=== PATIENT | female | born 1990 | race Caucasian/White ===

== ENCOUNTER 2016-06-22 14:41 | Emergency (ER) | payer OTHER ==
[~2016-06-22] VITALS: Ht 147.3 cm; Wt 50.5 kg
[~2016-06-22 14:41] MED LIST: BCPILLS PO; CRANPOW; MULTTAB58 PO; ONDA4TAB7 SL
[2016-06-22 14:52] VITALS: TEMP 36.9; Ht 147.3 cm; Wt 50.5 kg
[2016-06-22] MEDS ORDERED: IBUP-1050 PO (14:59)
[2016-06-22] MEDS ORDERED: XYLOCAINE 1%/SOD BICARB 20 ML VIAL INFIL ONE (15:30)
[2016-06-22 15:54] VITALS: BP 110/75; PULSE 99; O2SAT 97
--- NOTE | 2016-06-22 19:20 | EMERGENCY ROOM VISIT NOTE ---
History First contact with patient: 15:09 Chief Complaint: FINGER PAIN Stated Complaint: R PINKY NAIL FALLING OFF BED History of Present Illness The patient is a 26 year old female who presents to the Emergency Room with complaints of right fifth finger nail that is coming loose. The patient reports crushing the fingertip in a car door approximately 3 months ago. She reports that the nail has been trying to come off over the past few days. She got it caught in her hair this morning while sleeping, and caused significant pain. She is wanting to know if the nail can be removed. She rates her discomfort a 6 out of 10. The patient is [id number]. Review of Systems 10 system review was performed and was negative except for pertinent positives and negatives as indicated in history of present illness Past Medical/Surgical History Medical Problems: (1) Pyelonephritis (2) Tobacco Use Disorder Surgical Problems: (1) No history of previous surgery Family History FH: hypertension FH: kidney disease Social History Smoking Status: Current Every Day Smoker Alcohol Use: none Marital Status: single Housing Status: lives with significant other Occupation Status: unemployed Current/Historical Medications Scheduled Ibuprofen (Advil), 400 MG PO DIRECTED Allergies Coded Allergies: Ciprofloxacin (Verified Allergy, Unknown, rash, 06/22/16) Physical Exam Vital Signs Date Time Temp Pulse Resp B/P Pulse Ox O2 Delivery O2 Flow Rate FiO2 06/22/16 15:54 99 16 110/75 97 06/22/16 14:52 36.9 106 16 112/70 99 Room Air Physical Exam CONSTITUTIONAL: Healthy and well nourished. Alert and oriented X 3 with positive affect. HEENT: Normocephalic, atraumatic. Pupils equal, round and reactive. NECK: Full active range of motion without discomfort. MUSCULOSKELETAL: Examination of the right fifth finger shows a nail plate that is subluxed proximally, and attached to the radial nail fold. There is no bleeding from under the nail plate. Capillary refill is less than 2 seconds. INTEGUMENTARY: No rash or other significant dermatologic conditions noted. NEUROLOGIC: No focal neurologic deficits noted. Right fifth fingertip is sensory intact. Medical Decision & Procedures Medications Administered Medications (Trade) Dose Ordered Sig/Porfirio Route Start Time Stop Time Status Last Admin Dose Admin Lidocaine HCl (Buffered Lidocaine 1% Inj) 20 ml ONE ONCE INFIL 06/22/16 15:30 1/2/17 15:31 DC 06/22/16 15:26 20 ML Procedure Patient requested nail plate removal under digital block anesthesia. Using buffered 1% lidocaine without epinephrine, good local anesthesia was administered. The finger was painted with iodine and allowed to dry. Sterile field was created. Great care was used to avoid any further trauma to the nail fold and underlying nailbed. The nail plate was carefully from the nail fold with iris scissors. The finger was then cleansed with normal saline, and covered with a bacitracin bandage. ED Course Patient history and physical exam were performed. Nail plate removal was performed at the request of the patient. She was encouraged to keep the area covered with an antibody ointment and dressing over the next few days, watching for any signs of infection. Ibuprofen or Tylenol if needed for pain. The patient was happy with plan care, voiced understanding of all discharge instructions, and denied any pain at the time of discharge. Impression Primary Impression: Separation of nail plate Departure Information Referrals No Doctor, Assigned (PCP) Patient Instructions A Signature [facility], [facility]
== END 2016-06-22 15:56 | disposition home or self-care (01) ==
LOC: C.EDB 14:44 → C.EDD 15:56
DX: L60.1 Onycholysis (principal); F17.210 Nicotine dependence, cigarettes, uncomplicated

== ENCOUNTER 2016-11-13 13:03 | Emergency (ER) | payer OTHER ==
[~2016-11-13] VITALS: Ht 147.3 cm; Wt 44.5 kg
[~2016-11-13 13:03] MED LIST changes: -BCPILLS PO; -CRANPOW; +IBUP-1050 PO; -MULTTAB58 PO; -ONDA4TAB7 SL
[2016-11-13 13:07] VITALS: TEMP 36.7; Ht 147.3 cm; Wt 44.5 kg
[2016-11-13] MEDS ORDERED: SODIUM CHLORIDE 0.9% 1000ML 1,000 ML IV STA (13:22)
[2016-11-13] MEDS ORDERED: ONDANSETRON INJ 2 MG/ML 2 ML VIAL IV STA (13:22)
[2016-11-13] MEDS ORDERED: KETOROLAC TROMETHAMINE 30 MG/ML VIAL IV STA (13:22)
[2016-11-13 13:38] LABS: BASO % 0.1 %; BASO ABS # 0.01 K/uL (0-0.2); COMPLETE YES; EOS % 1.2 %; HEMATOCRIT 43.2 % (37-47); IG% 0.1 %; LYMPH % 27.9 %; LYMPH ABS # 2.33 K/uL (1.2-3.4); MEAN CELL VOLUME 90.8 fL (80-100); MEAN CORPUSCULAR HEMOGLOBIN 29.8 pg (25-34); MEAN CORPUSCULAR HGB CONC 32.9 g/dl (32-36); MEAN PLATELET VOLUME 11.2 fL (7.4-10.4); MONO % 6.5 %; NEUT % 64.2 %; PLATELET COUNT 224 K/uL (130-400); RED BLOOD COUNT 4.76 M/uL (4.2-5.4); WHITE BLOOD COUNT 8.36 K/uL (4.8-10.8)
[2016-11-13 14:00] LABS: ALT/SGPT 19 U/L (12-78); AST/SGOT 10 U/L (15-37); BLOOD UREA NITROGEN 9 mg/dl (7-18); BUN/CREATININE RATIO 13.7 (10-20); CALCIUM 8.6 mg/dl (8.5-10.1); CARBON DIOXIDE 24 mmol/L (21-32); CHLORIDE 110 mmol/L (98-107); CREATININE 0.69 mg/dl (0.60-1.20); GLUCOSE 108 mg/dl (70-99); POTASSIUM 4.1 mmol/L (3.5-5.1); SODIUM 141 mmol/L (136-145)
[2016-11-13 14:03] LABS: ALKALINE PHOSPHATASE 65 U/L (45-117)
[2016-11-13 14:56] LABS: PREG INTERNAL NEGATIVE QC NEG CLEAR BACKGROUND; PREG INTERNAL POSITIVE QC POS CONTROL LINE
[2016-11-13 15:00] LABS: URINE APPEARANCE CLEAR (CLEAR); URINE BILIRUBIN NEG (NEG); URINE COLOR YELLOW; URINE EPITHELIAL CELL AUTO >30 /lpf (0-5); URINE NITRITE POS (NEG); URINE SPECIFIC GRAVITY 1.019 (1.000-1.030); UROBILINOGEN NEG (NEG)
[2016-11-13] MEDS ORDERED: PROM25TA9 PO (15:08)
[2016-11-13 15:10] VITALS: BP 121/91; PULSE 74; O2SAT 100
[2016-11-13 15:10] LABS: MANUAL MICROSCOPIC REQUIRED? NO; REVIEW REQ? NO
--- NOTE | 2016-11-13 15:14 | EMERGENCY ROOM VISIT NOTE ---
History First contact with patient: 13:08 Chief Complaint: VOMITING Stated Complaint: VOMITING,DIARRHEA Nursing Triage Summary: Nausea and vomiting for a "few days", had an episode of diarrhea prior to coming to ER. History of Present Illness The patient is a 26 year old female who presents to the Emergency Room with complaints of nausea, vomiting and diarrhea. The patient reports that she developed nausea and vomiting approximately 4 days ago. She then developed really soft stools yesterday. The nausea has somewhat improved. She now reports generalized abdominal cramping as well. She denies any urinary symptoms or risk of . She denies any pain radiating into the back or chest. She denies any recent reflux. She denies eating any unusual foods, and has had no recent foreign travel. She also denies any known sick contacts. She rates her overall discomfort a 5 out of 10. She did take a dissolvable fowler flavored nausea medicine last night without any relief of her symptoms. Her got it as a prescription several years ago, but does not know the name of the medication. Review of Systems HEENT: Denies dizziness, visual problems, hearing loss, tinnitus. Denies difficulty swallowing or oral lesions. PULMONARY: Denies cough, shortness of breath, sputum production or hemoptysis. CARDIOVASCULAR: Denies chest pain, palpitations, dyspnea on exertion, orthopnea or peripheral edema. GASTROINTESTINAL: See history of present illness. GENITOURINARY: Denies dysuria, frequency, urgency or nocturia. NEUROLOGIC: Denies history of epilepsy, CVA, TIA or chronic headaches. MUSCULOSKELETAL: Denies history of joint tenderness/swelling. SKIN: Denies rashes or lesions. PSYCHIATRIC: Denies history of depression or mental illness. ENDOCRINE: Denies history of diabetes or thyroid disorders. Past Medical/Surgical History Medical Problems: (1) Pyelonephritis (2) Tobacco Use Disorder Surgical Problems: (1) No history of previous surgery Family History FH: hypertension FH: kidney disease Social History Smoking Status: Current Every Day Smoker Alcohol Use: none Marital Status: single Housing Status: lives with significant other Occupation Status: unemployed Current/Historical Medications Scheduled PRN Promethazine Hcl (Phenergan), 25 MG PO Q6H PRN for Nausea Allergies Coded Allergies: Ciprofloxacin (Verified Allergy, Unknown, rash, 11/13/16) Physical Exam Vital Signs Date Time Temp Pulse Resp B/P Pulse Ox O2 Delivery O2 Flow Rate FiO2 11/13/16 13:07 36.7 96 18 111/87 97 Room Air Physical Exam CONSTITUTIONAL: Healthy and well nourished. Alert and oriented X 3 with positive affect. Patient appears in mild distress. She does not appear acutely ill or toxic. HEENT: Normocephalic, atraumatic. Pupils equal, round and reactive. Ears and nares are clear. No scleral icterus or conjunctival injection/pallor. OROPHARYNX: Mucous membranes are dry. No tonsillar hypertrophy, exudates or posterior pharyngeal erythema. NECK: Full active range of motion without discomfort. RESPIRATORY: Clear to auscultation bilaterally with no wheezing, crackles, rhonchi or stridor. CARDIOVASCULAR: Regular rate and rhythm with no murmurs, rubs or gallops. GASTROINTESTINAL: Bowel sounds present in all quadrants. Examination shows diffuse nonfocal tenderness to palpation of the abdomen. Negative McBurney's point tenderness. Negative CVA tenderness. No rigidity, guarding or rebound. MUSCULOSKELETAL: Full range of motion of all joints without discomfort. INTEGUMENTARY: No rash or other significant dermatologic conditions noted. HEMATOLOGIC: No ecchymosis or petechiae. NEUROLOGIC: No focal neurologic deficits noted. Medical Decision & Procedures Laboratory Results 11/13/16 13:25 Red Blood Count 4.76, Mean Corpuscular Volume 90.8, Mean Corpuscular Hemoglobin 29.8, Mean Corpuscular Hemoglobin Concent 32.9, Mean Platelet Volume 11.2, Neutrophils (%) (Auto) 64.2, Lymphocytes (%) (Auto) 27.9, Monocytes (%) (Auto) 6.5, Eosinophils (%) (Auto) 1.2, Basophils (%) (Auto) 0.1, Neutrophils # (Auto) 5.37, Lymphocytes # (Auto) 2.33, Monocytes # (Auto) 0.54, Eosinophils # (Auto) 0.10, Basophils # (Auto) 0.01 11/13/16 13:25 Test 11/13/16 13:25 11/13/16 14:30 White Blood Count 8.36 K/uL (4.8-10.8) Red Blood Count 4.76 M/uL (4.2-5.4) Hemoglobin 14.2 g/dL (12.0-16.0) Hematocrit 43.2 % (37-47) Mean Corpuscular Volume 90.8 fL (80-100) Mean Corpuscular Hemoglobin 29.8 pg (25-34) Mean Corpuscular Hemoglobin Concent 32.9 g/dl (32-36) Platelet Count 224 K/uL (130-400) Mean Platelet Volume 11.2 fL (7.4-10.4) Neutrophils (%) (Auto) 64.2 % Lymphocytes (%) (Auto) 27.9 % Monocytes (%) (Auto) 6.5 % Eosinophils (%) (Auto) 1.2 % Basophils (%) (Auto) 0.1 % Neutrophils # (Auto) 5.37 K/uL (1.4-6.5) Lymphocytes # (Auto) 2.33 K/uL (1.2-3.4) Monocytes # (Auto) 0.54 K/uL (0.11-0.59) Eosinophils # (Auto) 0.10 K/uL (0-0.5) Basophils # (Auto) 0.01 K/uL (0-0.2) RDW Standard Deviation 42.0 fL (36.4-46.3) RDW Coefficient of Variation 12.6 % (11.5-14.5) Immature Granulocyte % (Auto) 0.1 % Immature Granulocyte # (Auto) 0.01 K/uL (0.00-0.02) Anion Gap 7.0 mmol/L (3-11) Est Creatinine Clear Calc Drug Dose 78.3 ml/min Estimated GFR () 137.3 Estimated GFR (Non- 118.5 BUN/Creatinine Ratio 13.7 (10-20) Calcium Level 8.6 mg/dl (8.5-10.1) Total Bilirubin 0.7 mg/dl (0.2-1) Direct Bilirubin < 0.1 mg/dl (0-0.2) Aspartate Amino Transf (AST/SGOT) 10 U/L (15-37) Alanine Aminotransferase (ALT/SGPT) 19 U/L (12-78) Alkaline Phosphatase 65 U/L (45-117) Total Creatine Kinase 64 U/L (26-192) Total Protein 7.4 gm/dl (6.4-8.2) Albumin 4.0 gm/dl (3.4-5.0) Lipase 107 U/L (73-393) Urine Test NEG (NEG) The above labs were reviewed. CBC, partial renal profile, LFTs and lipase are normal. Urine is negative. Urinalysis was still pending at the time the patient wanted to leave. Medications Administered Medications (Trade) Dose Ordered Sig/Porfirio Route Start Time Stop Time Status Last Admin Dose Admin Ketorolac Tromethamine 30 mg 30 mg NOW STAT IV 11/13/16 13:22 11/13/16 13:24 DC 11/13/16 13:38 30 MG Sodium Chloride (Nss 1000ml) 1,000 ml @ 999 mls/hr Q1H1M STAT IV 11/13/16 13:22 11/13/16 14:22 DC 11/13/16 13:38 999 MLS/HR Ondansetron HCl (Zofran Inj) 4 mg NOW STAT IV 11/13/16 13:22 11/13/16 13:24 DC 11/13/16 13:37 4 MG Procedure 1. IV hydration: The patient received a liter normal saline bolus 2. IV medications: Toradol 30 mg and Zofran 4 mg IVP ED Course Patient history and physical exam were performed. Nurse's notes were reviewed. Vital signs were reviewed and were grossly normal. IV access was established , and labs were drawn. The patient was hydrated with normal saline, and received IV medications as discussed in the previous Procedure section. Review of labs showed no acute findings. The patient did report feeling better with his treatment, and requested discharge home before all labs were completed. She also reported feeling hungry. The patient was encouraged to avoid any significant foods at this time which may cause her to become nauseated again. She was given instructions on a clear liquid diet, slowly advancing diet as tolerated. Tylenol as needed for pain. She was provided a prescription for Phenergan as needed to prevent nausea. She was instructed to follow-up with her PCP if symptoms are not improving by Wednesday when her PCP's office reopens. She is welcome to return over the weekend for any worsening symptoms. The patient voiced understanding of all discharge instructions, and seemed frustrated with other people that was with her today. Medical Decision Patient presents to emergency department with complaint of nausea, vomiting and diarrhea. Workup today does not show any leukocytosis. She is afebrile. She is not anemic and does not have any change in her LFTs or lipase. Her clinical exam shows generalized abdominal tenderness to palpation. I do not suspect peritonitis, bowel obstruction, appendicitis, diverticulitis, ischemic gut,, UTI or pyelonephritis. Her urine is negative. Impression Primary Impression: Nausea, vomiting, and diarrhea Departure Information Prescriptions Promethazine Hcl (Phenergan) 25 Mg Tab 25 MG PO Q6H Y for Nausea, #20 TAB Prov: Prakash Verdugo PA 11/13/16 Referrals Ian Aquino PA-C (PCP) Patient Instructions My [facility]
== END 2016-11-13 15:10 | disposition home or self-care (01) ==
LOC: C.EDB 13:06
DX: R11.2 Nausea with vomiting, unspecified (principal); R19.7 Diarrhea, unspecified; R10.84 Generalized abdominal pain; F17.200 Nicotine dependence, unspecified, uncomplicated; Z82.49 Family history of ischemic heart disease and other diseases of the circulatory system

== ENCOUNTER 2017-06-16 17:16 | Inpatient (IN) | payer OTHER ==
[~2017-06-16] VITALS: Ht 162.6 cm; Wt 60.2 kg
[2017-06-16] MEDS ORDERED: ONDANSETRON INJ 2 MG/ML 2 ML VIAL IV STA (17:52)
[2017-06-16] MEDS ORDERED: SODIUM CHLORIDE 0.9% 1000ML 1,000 ML IV STA (17:52)
[2017-06-16] MEDS ORDERED: FAMOTIDINE 20MG/5ML IV PUSH IV STA (17:52)
--- NOTE | 2017-06-16 17:52 | EMERGENCY ROOM VISIT NOTE ---
History First contact with patient: 17:22 Chief Complaint: ABDOMINAL PAIN Stated Complaint: STOMACH PAINS History of Present Illness The patient is a 27 year old female who presents to the Emergency Room with complaints of epigastric pain, nausea, vomiting for 5 days. Associated fatigue and cold sweats, but no fevers. Pain is intermittent, sharp, worse with sitting up, better with lying flat, currently rates as 2/10. She has taken Ibuprofen with no relief. No recent sick contacts, recent travel, or recent antibiotics. 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 She denies any fevers/chills, headache, neck pain, chest pain, SOB, dizziness or syncope, back pain, vomiting, diarrhea, constipation, bloody of black stools, urinary symptoms, rash. She denies any abnormal vaginal discharge, but does note that her most recent period was heavier and lasted longer than usual for her. Review of Systems A complete 10 point review of systems was reviewed with the patient with pertinent positives and negatives as per history of present illness. All else were negative. Past Medical/Surgical History Medical Problems: (1) Pyelonephritis (2) Tobacco Use Disorder Surgical Problems: (1) No history of previous surgery Family History FH: hypertension FH: kidney disease Social History Smoking Status: Current Every Day Smoker Alcohol Use: none Marital Status: single Housing Status: lives with significant other Occupation Status: unemployed Current/Historical Medications No Active Prescriptions or Reported Meds Allergies Reviewed in chart Physical Exam Vital Signs Date Time Temp Pulse Resp B/P (MAP) Pulse Ox O2 Delivery O2 Flow Rate FiO2 06/16/17 21:03 93 20 114/63 98 Room Air 06/16/17 19:32 72 06/16/17 19:10 82 20 113/75 98 Room Air 06/16/17 17:19 36.4 113 16 125/82 97 Room Air Physical Exam CONSTITUTIONAL: No acute distress. Mildly dehydrated, but otherwise well appearing and well nourished. Alert and oriented X 4 with normal affect. HEENT: Normocephalic, atraumatic. Pupils equal, round and reactive to light, EOMI, normal sclera bilaterally. TMs normal. Pharynx normal. Tacky mucous membranes. NECK: Supple, full active range of motion without discomfort. RESPIRATORY: Clear to auscultation bilaterally with no wheezing, crackles, rhonchi or stridor. Equal expansion bilaterally. CARDIOVASCULAR: Regular rate and rhythm with no murmurs, rubs or gallops. Normal peripheral perfusion. No edema. GASTROINTESTINAL: Mild epigastric tenderness to palpation. No rebound or guarding. Abdomen is otherwise soft, nontender, nondistended. No palpable masses or HSM. Bowel sounds present in all quadrants. MUSCULOSKELETAL: Full range of motion of all joints without discomfort. INTEGUMENTARY: No rash or other significant dermatologic conditions noted. Multiple tattoos. NEUROLOGIC: Cranial nerves II-XII grossly intact. No focal neurologic deficits noted. Medical Decision & Procedures ER Provider Diagnostic Interpretation: ULTRASOUND RIGHT UPPER QUADRANT ABDOMEN CLINICAL HISTORY: Epigastric abdominal pain. Nausea and vomiting. COMPARISON STUDY: Abdominal CT dated 02/21/2012. TECHNIQUE: Real-time, grayscale, and color flow sonography of the right upper quadrant of the abdomen was performed. Images are reviewed in the transverse and longitudinal planes. FINDINGS: Liver: The liver is normal in size and echotexture. There is no intrahepatic biliary ductal dilatation. The main portal vein is patent. Gallbladder: The gallbladder wall is thickened and mildly edematous measuring up to 1.2 cm. Trace pericholecystic fluid is identified. No shadowing gallstones are seen in the gallbladder is nondistended. A sonographic Lainez's sign is reportedly absent. The common bile duct measures up to 0.3 cm in diameter. Pancreas: Visualized portions of the pancreatic head and body are normal in appearance. The splenic vein is patent. Right kidney: Survey images of the right kidney demonstrate normal size and echotexture. There is no hydronephrosis. Ascites: None. IMPRESSION: 1. The gallbladder wall is thickened and edematous and there is trace pericholecystic fluid. No shadowing gallstones are identified, the gallbladder is not distended, and a sonographic Lainez's sign is reportedly absent. The findings are nonspecific and this may be related to hepatic inflammation. The appearance is not typical for acute cholecystitis and acalculus cholecystitis is considered less likely. Nuclear hepatobiliary scan could be considered for further assessment if clinically warranted. 2. There is no intra or extrahepatic biliary ductal dilatation. Laboratory Results 06/16/17 18:10 Red Blood Count 4.89, Mean Corpuscular Volume 87.7, Mean Corpuscular Hemoglobin 30.3, Mean Corpuscular Hemoglobin Concent 34.5 06/16/17 18:10 Test 06/16/17 18:10 06/16/17 19:52 06/16/17 21:46 White Blood Count 7.98 K/uL (4.8-10.8) Red Blood Count 4.89 M/uL (4.2-5.4) Hemoglobin 14.8 g/dL (12.0-16.0) Hematocrit 42.9 % (37-47) Mean Corpuscular Volume 87.7 fL (80-100) Mean Corpuscular Hemoglobin 30.3 pg (25-34) Mean Corpuscular Hemoglobin Concent 34.5 g/dl (32-36) Platelet Count 77 K/uL (130-400) RDW Standard Deviation 41.8 fL (36.4-46.3) RDW Coefficient of Variation 13.0 % (11.5-14.5) Neutrophils % (Manual) 30.4 % Lymphocytes % (Manual) 15.7 % Variant Lymphocytes % (manual) 52.2 % Monocytes % (Manual) 1.7 % Neutrophils # (Manual) 2.43 K/uL (1.4-6.5) Total Absolute Neutrophils 2.43 K/uL (1.4-6.5) Lymphocytes # (Manual) 1.25 K/uL (1.2-3.4) Absolute Variant Lymphocytes 4.17 K/uL Total Absolute Lymphocytes 5.42 K/uL (1.2-3.4) Monocytes # (Manual) 0.14 K/uL (0.11-0.59) Platelet Estimate DECREASED Echinocytes 2+ Urine Color ELVI Urine Appearance CLOUDY (CLEAR) Urine pH (4.5-7.5) Urine Specific [place] 1.025 (1.000-1.030) Urine Protein NEG (NEG) Urine Glucose (UA) (NEG) Urine Ketones (NEG) Urine Occult Blood (NEG) Urine Nitrite (NEG) Urine Bilirubin (NEG) Urine Urobilinogen (NEG) Urine Leukocyte Esterase (NEG) Urine RBC 0-4 /hpf (0-4) Urine WBC 1-5 /hpf (0-5) Urine Epithelial Cells >30 /lpf (0-5) Urine Bacteria 2+ (NEG) Urine Mucus PRESENT (NONE PRSENT) Urine Test NEG (NEG) Anion Gap 8.0 mmol/L (3-11) Est Creatinine Clear Calc Drug Dose 84.4 ml/min Estimated GFR () 107.3 Estimated GFR (Non- 92.6 BUN/Creatinine Ratio 20.4 (10-20) Calcium Level 8.4 mg/dl (8.5-10.1) Total Bilirubin 2.2 mg/dl (0.2-1) Direct Bilirubin mg/dl (0-0.2) Aspartate Amino Transf (AST/SGOT) 1080 U/L (15-37) Alanine Aminotransferase (ALT/SGPT) 2520 U/L (12-78) Alkaline Phosphatase 327 U/L (45-117) C-Reactive Protein 1.73 mg/dl (0-0.29) Total Protein 6.8 gm/dl (6.4-8.2) Albumin 3.3 gm/dl (3.4-5.0) Lipase 101 U/L (73-393) Chemistry Specimen Hemolysis Acetaminophen Level < 2 ug/ml (10-30) Hepatitis B Surface Antigen NEG (NEG) Hepatitis C Antibody PRELIM POS (NEG) Monoscreen NEG (NEG) Prothrombin Time 11.7 SECONDS (9.0-12.0) Prothromb Time International Ratio 1.1 (0.9-1.1) Activated Partial Thromboplast Time 30.6 SECONDS (21.0-31.0) Partial Thromboplastin Ratio 1.2 Medications Administered Medications (Trade) Dose Ordered Sig/Porfirio Route Start Time Stop Time Status Last Admin Dose Admin Sodium Chloride 1,000 ml @ 999 mls/hr Q1H1M STAT IV 06/16/17 17:52 06/16/17 18:52 DC 06/16/17 18:30 999 MLS/HR Ondansetron HCl (Zofran Inj) 4 mg NOW STAT IV 06/16/17 17:52 06/16/17 18:18 DC 06/16/17 18:30 4 MG Famotidine (Pepcid 20mg Iv Push) 20 mg NOW STAT IV 06/16/17 17:52 06/16/17 18:19 DC 06/16/17 18:30 20 MG Medical Decision CC: Patient presenting with complaint of epigastric pain, nausea, vomiting for 5 days Interpretation of Labs: No leukocytosis, no anemia, thrombocytopenia, hyperglycemia, no other significant electrolyte abnormalities, normal renal function. Liver enzymes diffusely and significantly elevated, lipase normal. Coagulation factors within normal limits. Tylenol level negative. Monospot negative. Hepatitis panel pending, preliminary positive Hep C result noted. UA, urine is negative. Differential Diagnosis: Includes, but not limited to gastritis, PUD, gastroenteritis, cholecystitis, cholelithiasis, hepatitis, pancreatitis, Tylenol overdose, mononucleosis, among others. Medication Reconciliation: I attest that I have personally reviewed the patient' s current medication list. Vital signs review: I reviewed the patient's vital signs and interpret them as follows: T: Afebrile; BP: Normotensive; HR: Tachycardic; RR: Within normal limits; Pulse Ox: Within normal limits on room air. Blood pressure screening: The patient was found to have normal blood pressure on screening and does not require follow-up for repeat blood pressure check. Summary: Patient was evaluated at bedside, history and physical exam performed. Patient is alert and oriented, no acute distress, resting calmly in the stretcher. She has mild tenderness in the epigastric region, the abdomen is otherwise soft and nontender with normal bowel sounds. She does appear mildly dehydrated. Orders were placed at bedside for labs, IV fluids for hydration, IV Zofran and Pepcid to treat for nausea and epigastric pain. Patient discussed with Dr. Vidal, who agrees with my assessment and plan. Labs reviewed as above, notable for thrombocytopenia and significantly elevated liver enzymes concerning for hepatitis. These findings appear to be new when compared to previous labs in October 2016. I discussed these results with the patient, she states that she was tested for hepatitis C two months ago and this was negative. She denies any recent Tylenol use. Tylenol level, hepatitis panel, Monospot with EBV reflex, and right upper quadrant ultrasound were ordered. Tylenol and Monospot are negative. Hepatitis panel preliminary positive for hep C. Right upper quadrant ultrasound shows thickened gallbladder wall without other evidence of acute cholecystitis, concerning for hepatic inflammation. Discussed with Dr. Vidal, she agrees with plan to seek admission for further management of the patient's acute hepatitis. Spoke with Dr. Rosas, hospitalist, who agrees to evaluate the patient for admission. Patient reassessed multiple times throughout ED stay, patient reports she is feeling improved after IV fluids and medications. She continues to deny any significant pain. She was updated on results and plan for admission to the hospital for further management of her suspected hepatitis, she was agreeable to this plan. The patient was stable at time of admission. Medication Reconcilliation Current Medication List: was personally reviewed by me Blood Pressure Screening Patient's blood pressure: Normal blood pressure Impression Primary Impression: Acute hepatitis Additional Impression: Thrombocytopenia Departure Information Dispostion Admitted as an inpatient Condition FAIR Prescriptions No Active Prescriptions or Reported Meds Referrals No Doctor, Assigned (PCP) Patient Instructions My [facility] Problem Qualifiers
[2017-06-16 19:08] LABS: HEMATOCRIT 42.9 % (37-47); HEMOGLOBIN 14.8 g/dL (12.0-16.0); MEAN CELL VOLUME 87.7 fL (80-100); MEAN CORPUSCULAR HEMOGLOBIN 30.3 pg (25-34); MEAN CORPUSCULAR HGB CONC 34.5 g/dl (32-36); PLATELET COUNT 77 K/uL (130-400); RED CELL DISTRIBUTION WIDTH SD 41.8 fL (36.4-46.3); WHITE BLOOD COUNT 7.98 K/uL (4.8-10.8)
[2017-06-16 19:27] LABS: ALBUMIN 3.3 gm/dl (3.4-5.0); ALKALINE PHOSPHATASE 327 U/L (45-117); ALT/SGPT 2520 U/L (12-78); AST/SGOT 1080 U/L (15-37); BLOOD UREA NITROGEN 17 mg/dl (7-18); CALCIUM 8.4 mg/dl (8.5-10.1); CARBON DIOXIDE 23 mmol/L (21-32); CREATININE 0.85 mg/dl (0.60-1.20); GLUCOSE 164 mg/dl (70-99); LIPASE 101 U/L (73-393); POTASSIUM 3.6 mmol/L (3.5-5.1); SODIUM 138 mmol/L (136-145); TOTAL PROTEIN 6.8 gm/dl (6.4-8.2)
--- NOTE | 2017-06-16 20:38 | DIAGNOSTIC IMAGING REPORT ---
ULTRASOUND RIGHT UPPER QUADRANT ABDOMEN CLINICAL HISTORY: Epigastric abdominal pain. Nausea and vomiting. COMPARISON STUDY: Abdominal CT dated 02/21/2012. TECHNIQUE: Real-time, grayscale, and color flow sonography of the right upper quadrant of the abdomen was performed. Images are reviewed in the transverse and longitudinal planes. FINDINGS: Liver: The liver is normal in size and echotexture. There is no intrahepatic biliary ductal dilatation. The main portal vein is patent. Gallbladder: The gallbladder wall is thickened and mildly edematous measuring up to 1.2 cm. Trace pericholecystic fluid is identified. No shadowing gallstones are seen in the gallbladder is nondistended. A sonographic Lainez's sign is reportedly absent. The common bile duct measures up to 0.3 cm in diameter. Pancreas: Visualized portions of the pancreatic head and body are normal in appearance. The splenic vein is patent. Right kidney: Survey images of the right kidney demonstrate normal size and echotexture. There is no hydronephrosis. Ascites: None. IMPRESSION: 1. The gallbladder wall is thickened and edematous and there is trace pericholecystic fluid. No shadowing gallstones are identified, the gallbladder is not distended, and a sonographic Lainez's sign is reportedly absent. The findings are nonspecific and this may be related to hepatic inflammation. The appearance is not typical for acute cholecystitis and acalculus cholecystitis is considered less likely. Nuclear hepatobiliary scan could be considered for further assessment if clinically warranted. 2. There is no intra or extrahepatic biliary ductal dilatation. Electronically signed by: López Sanchez M.D. 06/16/2017 8:37 PM Dictated Date/Time: 06/16/2017 8:33 PM
[2017-06-16 21:27] LABS: HEP C IGG 13 YRS+OLDER_RFLX PRELIM POS (NEG)
[2017-06-16] MEDS ORDERED: MAGNESIUM HYDROXIDE SUSP 30 ML UDC PO PRN (21:45)
[2017-06-16] MEDS ORDERED: ONDANSETRON INJ 2 MG/ML 2 ML VIAL IV PRN (21:45)
[2017-06-16] MEDS ORDERED: POLYETHYLENE (MIRALAX) 17 GM PACK PO PRN (21:45)
[2017-06-16] MEDS ORDERED: ZOLPIDEM TARTRATE 5 MG TAB PO PRN (21:45)
[2017-06-16 22:21] LABS: INR 1.1 (0.9-1.1); PTT PATIENT 30.6 SECONDS (21.0-31.0)
--- NOTE | 2017-06-16 22:41 | History and Physical ---
History & Physical Date & Time of Service: Jun 16, 2017 at 22:25 Chief Complaint: Stomach Pains Primary Care Physician: No Doctor, Assigned History of Present Illness Source: patient, partner 27 years old female with no significant past medical history presented to the ED with epigastric pain, nausea and vomiting. 1 week ago patient woke up at night with severe nausea and vomiting, she vomited multiple times denies any hematemesis. After that she complained mainly and only from severe nausea, because of the nausea she had decreased oral intake. Otherwise she did not have any significant symptoms. Boyfriend stated that couple days ago she started to become sweaty and had some fever. Yesterday she started to vomit again. She vomited multiple times. Then decided to come to the hospital for further evaluation today. Prior to her first episode of vomiting she admits to having 1 alcoholic beverage. Before that she did not have colic beverage for few months. She admits to drug abuse, last was 5 months ago/Heroin She does have multiple tattoos. Could not inquire about sexual history in details as her boyfriend was in the room her and her boyfriend remember that about 2 weeks ago they ate at a [employer]. Both of them ate the same food, cooked Octopus She is currently active smoker. Denies contraceptive pills Her aunt from her father's side had systemic lupus erythematosus Family History FH: hypertension FH: kidney disease Social History Smoking Status: Current Every Day Smoker Marital Status: single Occupational Status: unemployed Allergies Coded Allergies: Ciprofloxacin (Verified Allergy, Severe, [id number], 06/16/17) Home Medications No Active Prescriptions or Reported Meds Review of Systems Constitutional: + chills, No fever, No sweats, No weight loss, No weakness, No fatigue, No problem reported Eyes: No worsening of vision, No eye pain, No redness, No discharge, No diplopia, No problem reported ENT: No hearing loss, No unusual epistaxis, No nasal symptoms, No sore throat, No tinnitus, No dental problems, No trouble swallowing, No problem reported Respiratory: No cough, No sputum, No wheezing, No shortness of breath, No dyspnea on exertion, No dyspnea at rest, No hemoptysis, No problem reported Cardiovascular: No chest pain, No orthopnea, No PND, No edema, No claudication , No palpitations, No problem reported Abdomen: + pain, + nausea, + vomiting, No diarrhea, No constipation, No GI bleeding, No problem reported Musculoskeletal: No joint pain, No muscle pain, No swelling, No calf pain, No problem reported Genitourinary - Female: No dysuria, No urinary frequency, No urinary urgency, No urinary incontinence, No urinary retention, No hematuria, No dysmenorrhea, No menorrhagia, No metrorrhagia, No rash, No vaginal bleeding, No vaginal discharge, No vaginal itching, No vulvodynia, No , No problem reported Neurologic: No memory loss, No paralysis, No weakness, No numbness/tingling, No vertigo, No balance problems, No problem reported Psychiatric: No depression symptoms, No anhedonism, No anxiety, No insomnia, No substance abuse, No problem reported Endocrine: No fatigue, No excessive thirst, No excessive urination, No problem reported Hematologic / Lymphatic: No abnormal bleeding/bruising, No clotting problems, No swollen lymph nodes, No night sweats, No problem reported Integumentary: No rash, No itch, No new/changing skin lesions, No color change , No bleeding, No problem reported Allergic / Immunologic: No environmental allergies, No seasonal allergies, No pet sensitivities, No food allergies, No hives, No frequent infections, No poor healing, No prolonged convalescence, No problem reported Physical Exam Vital Signs Date Time Temp Pulse Resp B/P (MAP) Pulse Ox O2 Delivery O2 Flow Rate FiO2 06/16/17 21:03 93 20 114/63 98 Room Air 06/16/17 19:32 72 06/16/17 19:10 82 20 113/75 98 Room Air 06/16/17 17:19 36.4 113 16 125/82 97 Room Air General Appearance: WD/WN, no apparent distress Head: normocephalic, atraumatic Eyes: normal inspection, EOMI ENT: normal ENT inspection, hearing grossly normal Neck: supple Respiratory/Chest: chest non-tender, lungs clear, normal breath sounds, no respiratory distress, no accessory muscle use Cardiovascular: regular rate, rhythm, no edema, no gallop, no JVD, no murmur Abdomen/GI: normal bowel sounds, soft, no organomegaly, no pulsatile mass, + tenderness Back: normal inspection Extremities/Musculoskelatal: normal inspection, no calf tenderness, normal capillary refill, no pedal edema, normal range of motion Neurologic/Psych: physicist light and optics II-XII nml as tested, no motor/sensory deficits, alert, normal mood/affect, normal reflexes, oriented x 3 Skin: normal color, warm/dry, no rash Diagnostics Laboratory Results Results Past 24 Hours Test 06/16/17 18:10 06/16/17 19:52 06/16/17 21:44 06/16/17 21:46 Range/Units White Blood Count 7.98 4.8-10.8 K/uL Red Blood Count 4.89 4.2-5.4 M/uL Hemoglobin 14.8 12.0-16.0 g/dL Hematocrit 42.9 37-47 % Mean Corpuscular Volume 87.7 80-100 fL Mean Corpuscular Hemoglobin 30.3 25-34 pg Mean Corpuscular Hemoglobin Concent 34.5 32-36 g/dl Platelet Count 77 130-400 K/uL RDW Standard Deviation 41.8 36.4-46.3 fL RDW Coefficient of Variation 13.0 11.5-14.5 % Neutrophils % (Manual) 30.4 % Lymphocytes % (Manual) 15.7 % Variant Lymphocytes % (manual) 52.2 % Monocytes % (Manual) 1.7 % Neutrophils # (Manual) 2.43 1.4-6.5 K/uL Total Absolute Neutrophils 2.43 1.4-6.5 K/uL Lymphocytes # (Manual) 1.25 1.2-3.4 K/uL Absolute Variant Lymphocytes 4.17 K/uL Total Absolute Lymphocytes 5.42 1.2-3.4 K/uL Monocytes # (Manual) 0.14 0.11-0.59 K/uL Platelet Estimate DECREASED Echinocytes 2+ Urine Color ELVI Urine Appearance CLOUDY CLEAR Urine pH 4.5-7.5 Urine Specific [place] 1.025 1.000-1.030 Urine Protein NEG NEG Urine Glucose (UA) NEG Urine Ketones NEG Urine Occult Blood NEG Urine Nitrite NEG Urine Bilirubin NEG Urine Urobilinogen NEG Urine Leukocyte Esterase NEG Urine RBC 0-4 0-4 /hpf Urine WBC 1-5 0-5 /hpf Urine Epithelial Cells >30 0-5 /lpf Urine Bacteria 2+ NEG Urine Mucus PRESENT NONE PRSENT Urine Test NEG NEG Sodium Level 138 136-145 mmol/L Potassium Level 3.6 3.5-5.1 mmol/L Chloride Level 107 98-107 mmol/L Carbon Dioxide Level 23 21-32 mmol/L Anion Gap 8.0 3-11 mmol/L Blood Urea Nitrogen 17 7-18 mg/dl Creatinine 0.85 0.60-1.20 mg/dl Est Creatinine Clear Calc Drug Dose 84.4 ml/min Estimated GFR () 107.3 Estimated GFR (Non- 92.6 BUN/Creatinine Ratio 20.4 10-20 Random Glucose 164 70-99 mg/dl Calcium Level 8.4 8.5-10.1 mg/dl Total Bilirubin 2.2 0.2-1 mg/dl Direct Bilirubin 0-0.2 mg/dl Aspartate Amino Transf (AST/SGOT) 1080 15-37 U/L Alanine Aminotransferase (ALT/SGPT) 2520 12-78 U/L Alkaline Phosphatase 327 45-117 U/L Total Protein 6.8 6.4-8.2 gm/dl Albumin 3.3 3.4-5.0 gm/dl Lipase 101 73-393 U/L Chemistry Specimen Hemolysis Acetaminophen Level < 2 10-30 ug/ml Hepatitis B Surface Antigen NEG NEG Hepatitis C Antibody PRELIM POS NEG Monoscreen NEG NEG Prothrombin Time 11.7 9.0-12.0 SECONDS Prothromb Time International Ratio 1.1 0.9-1.1 Activated Partial Thromboplast Time 30.6 21.0-31.0 SECONDS Partial Thromboplastin Ratio 1.2 Microbiology Results 06/16/17 Blood Culture, Ordered Pending 06/16/17 Blood Culture, Ordered Pending 06/16/17 Urine Culture, Received Pending Impression Assessment and Plan 27 years old female presented to the hospital with nausea/vomiting and epigastric pain. No pain right upper quadrant Labs revealed significantly increased liver enzymes ALT(2520)> AST(1080) elevated bilirubin Ultrasound revealed gallbladder wall is thickened and edematous with no dilation of intrahepatic biliary ducts that would explain elevated liver enzymes Assessment Acute hepatitis Thickened and edematous gallbladder sy with no stones Moderately elevated bilirubin Thrombocytopenia History of drug abuse, last was 5 months ago History of dietary exposure 2 weeks ago a [employer] restaurant Sexually active with no contraceptive pills Family history of systemic lupus erythematosus and her aunt Plan Differential is currently broad; most likely and most obvious is hepatitis virus, Panel was sent Also could be other viruses giving her thrombocytopenia, CMV, EBV, HSV 1/2, VZV serology was sent Giving her age and her family history I also sent HILTON, AMA, and to liver and kidney antibodies, anti-smooth muscle antibodies, antiphospholipid antibodies and systemic lupus anticoagulant Also she gave verbal consent to obtain HIV screening, she was also informed that she is responsible to follow-up on the results of the test by herself and she will not get a phone call with the test results. If all above-mentioned tests came back negative consider sending seruloplasmin and other rare diagnosis Infectious diseases and GI were consulted Her INR is 1.1, Due to the low platelets will use only SCD boots for DVT prophylaxis, we'll hold off pharmacologic DVT prophylaxis Follow-up liver enzymes in a.m. Follow-up platelets in a.m. Zofran for vomiting test was negative Ultrasound liver with Doppler was ordered to rule out Budd-Chiari syndrome VTE Prophylaxis VTE Risk Assessment Done? Y/N: Yes Risk Level: Moderate
[2017-06-16 23:29] VITALS: BP 109/75; PULSE 72; TEMP 36.8; O2SAT 99
[2017-06-17 00:06] VITALS: BP 109/75; PULSE 72; TEMP 36.8; Ht 162.6 cm; Wt 60.2 kg
[2017-06-17] MEDS ORDERED: INFLUENZA VIRUS QUAD VACCINE 0.5 ML SYR IM. ONE (00:45)
[2017-06-17] MEDS ORDERED: INFLUENZA ADMINISTRATION CHARGE ONE (00:45)
[2017-06-17] MEDS: HEPARIN SOD 5000 UNIT/0.5 ML CARP SQ SCH ×2 (06:02→14:00)
[2017-06-17 06:46] LABS: HEMATOCRIT 37.2 % (37-47); HEMOGLOBIN 12.7 g/dL (12.0-16.0); MEAN CELL VOLUME 88.4 fL (80-100); MEAN CORPUSCULAR HEMOGLOBIN 30.2 pg (25-34); MEAN CORPUSCULAR HGB CONC 34.1 g/dl (32-36); RED CELL DISTRIBUTION WIDTH CV 13.1 % (11.5-14.5); RED CELL DISTRIBUTION WIDTH SD 42.2 fL (36.4-46.3); WHITE BLOOD COUNT 11.97 K/uL (4.8-10.8)
[2017-06-17 07:08] LABS: ALBUMIN 2.8 gm/dl (3.4-5.0); CALCIUM 7.7 mg/dl (8.5-10.1); CREATININE 0.61 mg/dl (0.60-1.20); POTASSIUM 3.6 mmol/L (3.5-5.1)
--- NOTE | 2017-06-17 07:11 | DIAGNOSTIC IMAGING REPORT ---
DUPLEX PORTAL HEPATIC VEINS CLINICAL HISTORY: elevated liver enz abnormal liver enzymes TECHNIQUE: Abdominal Doppler COMPARISON STUDY: None FINDINGS: The Doppler evaluation of the portal and hepatic veins show normal vascular flow. Flow direction is antegrade. There is no evidence for thrombosis. Hepatic arterial structures are unremarkable in terms of velocity characteristics. IMPRESSION: Normal study The above report was generated using voice recognition software. It may contain grammatical, syntax or spelling errors. Electronically signed by: Tyrone May M.D. 06/17/2017 7:10 AM Dictated Date/Time: 06/17/2017 7:09 AM
[2017-06-17 07:20] LABS: TOTAL PROTEIN 5.8 gm/dl (6.4-8.2)
[2017-06-17 07:27] LABS: MEAN PLATELET VOLUME 12.8 fL (7.4-10.4); PLATELET COUNT 75 K/uL (130-400)
[2017-06-17 07:38] VITALS: BP 95/65; PULSE 67; TEMP 36.6; O2SAT 99
[2017-06-17 08:15] VITALS: O2SAT 99
--- NOTE | 2017-06-17 10:32 | NUR ---
ID Note: Patient is alert and oriented x4, lungs are coarse on room air, denies SOB or CP. Does verbalize some RICO. Moist non-productive cough present. Unable to produce sputum sample yet. Verbalizes a headache, requested Tylenol, states "it feels like its pressure in my sinuses, and it's giving me a headache". Patient is blowing her nose, verbalizes that it is yellow colored in tissue, not witnessed by staff yet. Patient is independent in room, able to ambulate to bathroom. IV in right forearm is saline locked. Discharge plans uncertain at this time. Call carballo in reach, bed in lowest position, will continue to monitor. Addendum: 06/17/17 at 1106 by Doreen Tovar RN WRONG PATIENT
[2017-06-17] MEDS ORDERED: PANTOprazole SOD 40 MG TAB PO ONE (11:10)
--- NOTE | 2017-06-17 13:01 | Gastrointestinal Consultation ---
Gastrointestinal Consultation Date of Consultation: Jun 17, 2017 Attending Physician: Tevin Hay Consulting Physician: Андрей Burns Reason for Consultation: Hepatitis History of Present Illness Patient is a 27 year old female who presented to ED w c/o epigastric abd pain, n /v which started 1 week ago. Denies any flu like symptoms or URI. Denies sick contact. Boyfriend noted her to be sweaty and feverish at home. Upon evaluation , labs showed low platelets, no coagulopathy otherwise, CMP normal but LFTs elevated: Tbili 2.2 -> 1.5, AST 1080 -> 456, ALT 2520 -> 1696, AP 377 -> 281. ESR normal, CRP up at 1.73. Lipase normal 101. Workup for liver diseases started. So far APAP level <2, acute hepatitis + for HCV (confirmatory testing pending). Monoscreen, Hep B negative. She had gallbladder u/s which showed gallbladder wall is thickened and edematous and there is trace pericholecystic fluid. No shadowing gallstones are identified, the gallbladder is not distended , and a sonographic Lainez's sign is reportedly absent. The findings are nonspecific and this may be related to hepatic inflammation. The appearance is not typical for acute cholecystitis and acalculus cholecystitis is considered less likely. There is no intra or extrahepatic biliary ductal dilatation. Liver u/s w patent portal veins. Urine test negative. Pt has hx of heroin abuse last used 5 months ago, last ETOH intake 1 beverage before her first vomiting episode. She smokes tobacco and has multiple tattoos. Denies any direct family hx of AIH but father side of family has SLE. She only takes Ibuprofen on daily basis at home for knee pain She currently denies anymore abd pain, n/v. Past Medical/Surgical History Medical Problems: (1) Acute hepatitis Status: Acute (2) Nausea, vomiting, and diarrhea Status: Acute (3) Thrombocytopenia Status: Acute Past Medical History: See above. Past Surgical History: None Family History FH: hypertension FH: kidney disease Social History Smoking Status: Current Every Day Smoker Alcohol Use: none Drug Use: heroin Marital Status: single Housing Status: lives with significant other Occupation Status: unemployed Allergies Coded Allergies: Ciprofloxacin (Verified Allergy, Severe, [id number], 06/16/17) Current Medications Home Meds and Scripts Medications Dose Route/Sig Max Daily Dose Days Date Category No Active Prescriptions or Reported Medications Rx Review of Systems Constitutional: No fever, No chills Respiratory: No cough, No shortness of breath Cardiac: No chest pain Abdomen: + see HPI, No pain, No nausea, No vomiting, No diarrhea, No GI bleeding Skin: No rash, No jaundice Physical Exam Date Time Temp Pulse Resp B/P (MAP) Pulse Ox O2 Delivery O2 Flow Rate FiO2 06/17/17 08:15 99 Room Air 06/17/17 07:38 36.6 67 16 95/65 (75) 99 Room Air 06/17/17 00:06 36.8 72 20 109/75 Room Air 06/16/17 23:29 36.8 72 20 109/75 (86) 99 Room Air 06/16/17 23:20 Room Air 06/16/17 22:45 83 20 111/71 98 06/16/17 21:03 93 20 114/63 98 Room Air 06/16/17 19:32 72 06/16/17 19:10 82 20 113/75 98 Room Air 06/16/17 17:19 36.4 113 16 125/82 97 Room Air General Appearance: WD/WN, no apparent distress Eyes: normal inspection, PERRL, EOMI Neck: supple, no JVD, trachea midline Respiratory/Chest: normal breath sounds, no respiratory distress, no accessory muscle use Cardiovascular: regular rate, rhythm, no gallop, no murmur Abdomen: normal bowel sounds, non tender, soft Extremities: normal inspection, no pedal edema, no calf tenderness Neurologic/Psych: alert, normal mood/affect, oriented x 3 Skin: normal color, no jaundice, no rash Laboratory Results Last 24 Hours Test 06/16/17 18:10 06/16/17 19:52 06/16/17 21:46 06/16/17 23:26 White Blood Count 7.98 K/uL Red Blood Count 4.89 M/uL Hemoglobin 14.8 g/dL Hematocrit 42.9 % Mean Corpuscular Volume 87.7 fL Mean Corpuscular Hemoglobin 30.3 pg Mean Corpuscular Hemoglobin Concent 34.5 g/dl Platelet Count 77 K/uL RDW Standard Deviation 41.8 fL RDW Coefficient of Variation 13.0 % Neutrophils % (Manual) 30.4 % Lymphocytes % (Manual) 15.7 % Variant Lymphocytes % (manual) 52.2 % Monocytes % (Manual) 1.7 % Neutrophils # (Manual) 2.43 K/uL Total Absolute Neutrophils 2.43 K/uL Lymphocytes # (Manual) 1.25 K/uL Absolute Variant Lymphocytes 4.17 K/uL Total Absolute Lymphocytes 5.42 K/uL Monocytes # (Manual) 0.14 K/uL Blood Smear Review Platelet Estimate DECREASED Echinocytes 2+ Urine Color ELVI Urine Appearance CLOUDY Urine pH Urine Specific [place] 1.025 Urine Protein NEG Urine Glucose (UA) Urine Ketones Urine Occult Blood Urine Nitrite Urine Bilirubin Urine Urobilinogen Urine Leukocyte Esterase Urine RBC 0-4 /hpf Urine WBC 1-5 /hpf Urine Epithelial Cells >30 /lpf Urine Bacteria 2+ Urine Mucus PRESENT Urine Test NEG Sodium Level 138 mmol/L Potassium Level 3.6 mmol/L Chloride Level 107 mmol/L Carbon Dioxide Level 23 mmol/L Anion Gap 8.0 mmol/L Blood Urea Nitrogen 17 mg/dl Creatinine 0.85 mg/dl Est Creatinine Clear Calc Drug Dose 84.4 ml/min Estimated GFR () 107.3 Estimated GFR (Non- 92.6 BUN/Creatinine Ratio 20.4 Random Glucose 164 mg/dl Calcium Level 8.4 mg/dl Total Bilirubin 2.2 mg/dl Direct Bilirubin mg/dl Aspartate Amino Transf (AST/SGOT) 1080 U/L Alanine Aminotransferase (ALT/SGPT) 2520 U/L Alkaline Phosphatase 327 U/L C-Reactive Protein 1.73 mg/dl Total Protein 6.8 gm/dl Albumin 3.3 gm/dl Lipase 101 U/L Chemistry Specimen Hemolysis Acetaminophen Level < 2 ug/ml Hepatitis B Surface Antigen NEG Hepatitis C Antibody PRELIM POS Monoscreen NEG Prothrombin Time 11.7 SECONDS Prothromb Time International Ratio 1.1 Activated Partial Thromboplast Time 30.6 SECONDS Partial Thromboplastin Ratio 1.2 Erythrocyte Sedimentation Rate 6 mm/hr Test 06/17/17 06:12 06/17/17 10:26 White Blood Count 11.97 K/uL Red Blood Count 4.21 M/uL Hemoglobin 12.7 g/dL Hematocrit 37.2 % Mean Corpuscular Volume 88.4 fL Mean Corpuscular Hemoglobin 30.2 pg Mean Corpuscular Hemoglobin Concent 34.1 g/dl Platelet Count 75 K/uL Mean Platelet Volume 12.8 fL RDW Standard Deviation 42.2 fL RDW Coefficient of Variation 13.1 % Neutrophils % (Manual) 8.9 % Lymphocytes % (Manual) 27.7 % Variant Lymphocytes % (manual) 61.6 % Eosinophils % (Manual) 1.8 % Neutrophils # (Manual) 1.07 K/uL Total Absolute Neutrophils 1.07 K/uL Lymphocytes # (Manual) 3.32 K/uL Absolute Variant Lymphocytes 7.37 K/uL Total Absolute Lymphocytes 10.69 K/uL Eosinophils # (Manual) 0.22 K/uL Echinocytes 2+ Sodium Level 139 mmol/L Potassium Level 3.6 mmol/L Chloride Level 109 mmol/L Carbon Dioxide Level 26 mmol/L Anion Gap 4.0 mmol/L Blood Urea Nitrogen 14 mg/dl Creatinine 0.61 mg/dl Est Creatinine Clear Calc Drug Dose 117.6 ml/min Estimated GFR () 142.0 Estimated GFR (Non- 122.5 BUN/Creatinine Ratio 23.6 Random Glucose 105 mg/dl Lactic Acid Level 1.5 mmol/L Calcium Level 7.7 mg/dl Total Bilirubin 1.5 mg/dl Aspartate Amino Transf (AST/SGOT) 456 U/L Alanine Aminotransferase (ALT/SGPT) 1696 U/L Alkaline Phosphatase 281 U/L Total Protein 5.8 gm/dl Albumin 2.8 gm/dl Globulin 3.0 gm/dl Albumin/Globulin Ratio 0.9 Ferritin 310.0 ng/ml Impression Patient is a 27 year old female w abd pain, n/v which had resolved. Urine test negative. Noted elevated LFTs, workup so far positive for HCV. Other serologies, APAP level pending. U/S negative for acute gallbladder disease , though gallbladder edematous likely related to liver disease, no signs of biliary obstruction and portal veins all patent. Plan - F/U liver serologies to r/o viral, other acute hepatitis, autoimmune/ hereditary liver diseases, HIV, Urine tox. - Discussed +prelim HCV test after obtaining consent from pt twice to discuss lab results while mother and boyfriend in room. - ETOH, illicit drugs cessation - Wonder if abd pain, n/v may be related to gastritis as she;s been taking Ibuprofen daily w/o PPI coverage. Advised to use NSAIDs in caution and now start Protonix 40mg daily - No contraindication to DC from GI standpoint as LFTs decreasing and we're just waiting for serologies to come back. She is also no longer having abd pain , n/v symptoms. She needs close GI follow up to monitor labs and unfortunately [facility] doesn't accept [facility] in outpt setting. Will ask [facility] to help arrange outpt f/u care. ATTESTATION: I have performed a history and physical examination of this patient and reviewed the electronic record. Specifically, on physical examination there is no significant epigastric tenderness. I have discussed the case with [facility] [place]. The above note reflects my findings, conclusions, and recommendations. Андрей Burns MD
[2017-06-17 14:58] VITALS: BP_SYST 104; BP_SYST 93; BP_DIAS 70; BP_DIAS 71; PULSE 60; TEMP 36.8; O2SAT 98
--- NOTE | 2017-06-17 15:32 | NUR ---
A: Pt. independent in room. Denies pain/discomfort at this time, no c/o n/v noted will continue to monitor.
--- NOTE | 2017-06-17 15:36 | Medical Consult ---
Consultation Date of Consultation: Jun 17, 2017. Attending Physician: Shadi Hebert MD Reason for Consultation: Hepatitis History of Present Illness 27-year-old female with history of IV drug abuse, states none for the last 5 months, alcohol use, prior history of pyelonephritis, who was well until approximately 1 week ago when she had onset of nausea, vomiting, with epigastric pain. Had some associated feeling of fever with chills but did not take a temperature. She also may came to the emergency department where she was found to have markedly elevated liver enzymes with elevation of bilirubin. Underwent ultrasound of the abdomen which showed thickening of the gallbladder wall with cielo cholecystic fluid but no obvious obstruction or stone disease. Today liver enzymes have decreased somewhat in patient feeling better, able to eat breakfast and lunch. Has been afebrile in the hospital. So far has been found to have positive hepatitis-C antibodies, confirmatory test is pending. Monospot is negative. Other lab work pending. No other significant travel or exposure history. Past Medical/Surgical History Medical Problems: (1) Acute hepatitis Status: Acute (2) Nausea, vomiting, and diarrhea Status: Acute (3) Thrombocytopenia Status: Acute Medical Problems: (1) Pyelonephritis (2) Tobacco Use Disorder Surgical Problems: (1) No history of previous surgery Family History FH: hypertension FH: kidney disease Social History Smoking Status: Current Every Day Smoker Drug Use: heroin Marital Status: single Housing Status: lives with significant other Occupation Status: unemployed Allergies Coded Allergies: Ciprofloxacin (Verified Allergy, Severe, [id number], 06/16/17) Current Inpatient Medications Current Inpatient Medications Medications (Trade) Dose Ordered Sig/Porfirio Route Start Time Stop Time Status Last Admin Dose Admin Heparin Sodium (Porcine) (Heparin Sq 5000 Unit/0.5ml) 5,000 unit Q8H SQ 06/17/17 06:00 07/17/17 05:59 06/17/17 06:02 5,000 UNIT Magnesium Hydroxide (Milk Of Magnesia Susp) 30 ml Q6H PRN PO 06/16/17 21:45 07/16/17 21:44 Polyethylene (Miralax Powder Packet) 17 gm DAILY PRN PO 06/16/17 21:45 07/16/17 21:44 Zolpidem Tartrate (Ambien Tab) 5 mg HSZ PRN PO 06/16/17 21:45 07/16/17 21:44 Ondansetron HCl (Zofran Inj) 4 mg Q6H PRN IV 06/16/17 21:45 07/16/17 21:44 Pantoprazole Sodium (Protonix Tab) 40 mg QAM PO 06/18/17 08:00 06/21/17 07:59 Review of Systems Constitutional: + chills, No fever Eyes: No problem reported ENT: No problem reported Respiratory: No problem reported Cardiovascular: No problem reported Abdomen: + pain, + nausea, + vomiting Genitourinary - Female: + problem reported (Darkening urine) Neurologic: No problem reported Psychiatric: No problem reported Endocrine: No problem reported Hematologic / Lymphatic: No problem reported Integumentary: No problem reported Allergic / Immunologic: No problem reported Physical Exam Date Time Temp Pulse Resp B/P (MAP) Pulse Ox O2 Delivery O2 Flow Rate FiO2 06/17/17 14:58 36.8 60 16 93/70 (78) 98 Room Air 104/71 (82) 06/17/17 08:15 99 Room Air 06/17/17 07:38 36.6 67 16 95/65 (75) 99 Room Air 06/17/17 00:06 36.8 72 20 109/75 Room Air 06/16/17 23:29 36.8 72 20 109/75 (86) 99 Room Air 06/16/17 23:20 Room Air 06/16/17 22:45 83 20 111/71 98 06/16/17 21:03 93 20 114/63 98 Room Air 06/16/17 19:32 72 06/16/17 19:10 82 20 113/75 98 Room Air 06/16/17 17:19 36.4 113 16 125/82 97 Room Air General Appearance: WD/WN, no apparent distress Head: normocephalic, atraumatic Eyes: normal inspection, EOMI, sclerae normal ENT: normal ENT inspection, pharynx normal Neck: supple, no adenopathy, thyroid normal, trachea midline Respiratory/Chest: chest non-tender, lungs clear, normal breath sounds, no respiratory distress Cardiovascular: regular rate, rhythm, no gallop, no murmur Abdomen/GI: normal bowel sounds, soft, no organomegaly, + tenderness Back: normal inspection, no CVA tenderness Extremities/Musculoskelatal: no calf tenderness, non-tender Neurologic/Psych: alert, oriented x 3 Skin: normal color, warm/dry, no rash Lymphatic: no adenopathy Laboratory Results Date/Time Source Procedure Growth Status 06/16/17 23:44 Blood Blood Culture Pending Received 06/16/17 23:26 Blood Blood Culture Pending Received 06/16/17 18:10 Urine , Clean Catch Urine Culture - Preliminary PIN-POINT GROWTH PRESENT, REINCUBATING. Resulted Last 24 Hours Test 06/16/17 18:10 06/16/17 19:52 06/16/17 21:46 06/16/17 23:26 White Blood Count 7.98 K/uL Red Blood Count 4.89 M/uL Hemoglobin 14.8 g/dL Hematocrit 42.9 % Mean Corpuscular Volume 87.7 fL Mean Corpuscular Hemoglobin 30.3 pg Mean Corpuscular Hemoglobin Concent 34.5 g/dl Platelet Count 77 K/uL RDW Standard Deviation 41.8 fL RDW Coefficient of Variation 13.0 % Neutrophils % (Manual) 30.4 % Lymphocytes % (Manual) 15.7 % Variant Lymphocytes % (manual) 52.2 % Monocytes % (Manual) 1.7 % Neutrophils # (Manual) 2.43 K/uL Total Absolute Neutrophils 2.43 K/uL Lymphocytes # (Manual) 1.25 K/uL Absolute Variant Lymphocytes 4.17 K/uL Total Absolute Lymphocytes 5.42 K/uL Monocytes # (Manual) 0.14 K/uL Blood Smear Review Platelet Estimate DECREASED Echinocytes 2+ Urine Color ELVI Urine Appearance CLOUDY Urine pH Urine Specific [place] 1.025 Urine Protein NEG Urine Glucose (UA) Urine Ketones Urine Occult Blood Urine Nitrite Urine Bilirubin Urine Urobilinogen Urine Leukocyte Esterase Urine RBC 0-4 /hpf Urine WBC 1-5 /hpf Urine Epithelial Cells >30 /lpf Urine Bacteria 2+ Urine Mucus PRESENT Urine Test NEG Sodium Level 138 mmol/L Potassium Level 3.6 mmol/L Chloride Level 107 mmol/L Carbon Dioxide Level 23 mmol/L Anion Gap 8.0 mmol/L Blood Urea Nitrogen 17 mg/dl Creatinine 0.85 mg/dl Est Creatinine Clear Calc Drug Dose 84.4 ml/min Estimated GFR () 107.3 Estimated GFR (Non- 92.6 BUN/Creatinine Ratio 20.4 Random Glucose 164 mg/dl Calcium Level 8.4 mg/dl Total Bilirubin 2.2 mg/dl Direct Bilirubin mg/dl Aspartate Amino Transf (AST/SGOT) 1080 U/L Alanine Aminotransferase (ALT/SGPT) 2520 U/L Alkaline Phosphatase 327 U/L C-Reactive Protein 1.73 mg/dl Total Protein 6.8 gm/dl Albumin 3.3 gm/dl Lipase 101 U/L Chemistry Specimen Hemolysis Acetaminophen Level < 2 ug/ml Hepatitis B Surface Antigen NEG Hepatitis C Antibody PRELIM POS Monoscreen NEG Prothrombin Time 11.7 SECONDS Prothromb Time International Ratio 1.1 Activated Partial Thromboplast Time 30.6 SECONDS Partial Thromboplastin Ratio 1.2 Erythrocyte Sedimentation Rate 6 mm/hr Test 06/17/17 00:00 06/17/17 06:12 06/17/17 10:26 Urine Opiates Screen POS Urine Methadone, Qualitative NEG Urine Barbiturates NEG Urine Phencyclidine (PCP) Level NEG Ur Amphetamine/Methamphetamine NEG MDMA (Ecstasy) Screen NEG Urine Benzodiazepines Screen NEG Urine Cocaine Metabolite NEG Urine Marijuana (THC) NEG White Blood Count 11.97 K/uL Red Blood Count 4.21 M/uL Hemoglobin 12.7 g/dL Hematocrit 37.2 % Mean Corpuscular Volume 88.4 fL Mean Corpuscular Hemoglobin 30.2 pg Mean Corpuscular Hemoglobin Concent 34.1 g/dl Platelet Count 75 K/uL Mean Platelet Volume 12.8 fL RDW Standard Deviation 42.2 fL RDW Coefficient of Variation 13.1 % Neutrophils % (Manual) 8.9 % Lymphocytes % (Manual) 27.7 % Variant Lymphocytes % (manual) 61.6 % Eosinophils % (Manual) 1.8 % Neutrophils # (Manual) 1.07 K/uL Total Absolute Neutrophils 1.07 K/uL Lymphocytes # (Manual) 3.32 K/uL Absolute Variant Lymphocytes 7.37 K/uL Total Absolute Lymphocytes 10.69 K/uL Eosinophils # (Manual) 0.22 K/uL Echinocytes 2+ Sodium Level 139 mmol/L Potassium Level 3.6 mmol/L Chloride Level 109 mmol/L Carbon Dioxide Level 26 mmol/L Anion Gap 4.0 mmol/L Blood Urea Nitrogen 14 mg/dl Creatinine 0.61 mg/dl Est Creatinine Clear Calc Drug Dose 117.6 ml/min Estimated GFR () 142.0 Estimated GFR (Non- 122.5 BUN/Creatinine Ratio 23.6 Random Glucose 105 mg/dl Lactic Acid Level 1.5 mmol/L Calcium Level 7.7 mg/dl Total Bilirubin 1.5 mg/dl Aspartate Amino Transf (AST/SGOT) 456 U/L Alanine Aminotransferase (ALT/SGPT) 1696 U/L Alkaline Phosphatase 281 U/L Total Protein 5.8 gm/dl Albumin 2.8 gm/dl Globulin 3.0 gm/dl Albumin/Globulin Ratio 0.9 Ferritin 310.0 ng/ml [~ rep ct add3]] DUPLEX PORTAL HEPATIC VEINS CLINICAL HISTORY: elevated liver enz abnormal liver enzymes TECHNIQUE: Abdominal Doppler COMPARISON STUDY: None FINDINGS: The Doppler evaluation of the portal and hepatic veins show normal vascular flow. Flow direction is antegrade. There is no evidence for thrombosis. Hepatic arterial structures are unremarkable in terms of velocity characteristics. IMPRESSION: Normal study The above report was generated using voice recognition software. It may contain grammatical, syntax or spelling errors. Electronically signed by: Tyrone May M.D. 06/17/2017 7:10 AM Assessment & Plan 27-year-old female with history of IV drug abuse now with acute hepatitis, with positive screening hepatitis-C serology. Certainly patient could have acute hepatitis-C infection given the time frame of her last drug use, other viral and autoimmune etiologies are being evaluated with appropriate serologies. May want to consider HIDA scan if symptoms persist given ultrasound findings. Otherwise, do not think active intervention necessary and patient can be followed for clinical response and with follow-up of her serologies. See no contraindication for discharge from an ID standpoint. Will discuss.
[2017-06-17] MEDS ORDERED: OMEP40CA41 PO (16:43)
[2017-06-17] MEDS ORDERED: ONDA4TAB10 SL (16:43)
--- NOTE | 2017-06-17 16:48 | Discharge Instructions ---
Discharge Instructions Date of Service Jun 17, 2017. Admission Reason for Admission: Acute Hepatitis Discharge Discharge Diagnosis / Problem: Acute hepatitis, preliminary positive hepatitis C test Discharge Goals Goal(s): Decrease discomfort, Improve function, Diagnostic testing (follow up on testing) Activity Recommendations Activity Limitations: resume your previous activity . Instructions / Follow-Up Instructions / Follow-Up Medications - ZOFRAN: use as needed for any nausea or vomiting - OMEPRAZOLE: take 40mg daily for possible gastritis, reflux as a contributing cause to your pain Acute hepatitis: resolving, most likely viral, need to follow up closely with [facility] gastroenterology we will help set up appointment, will call you tomorrow the majority of your labs are still pending and the siebel solution architect will have the results at follow up appointment as we discussed, the preliminary hepatitis C test was positive, further confirmatory tests are still pending Current Hospital Diet Patient's current hospital diet: Regular Diet Discharge Diet Recommended Diet: Regular Diet Pending Studies Studies pending at discharge: yes List of pending studies: serology and viral panels for liver auto-immune studies for liver Medical Emergencies . Who to Call and When: Medical Emergencies: If at any time you feel your situation is an emergency, please call 911 immediately. . Non-Emergent Contact Non-Emergency issues call your: Primary Care Provider, Rides Supervisor Call Non-Emergent contact if: you have any medication questions . . "Provider Documentation" section prepared by Tevin Hay. . VTE Core Measure Inpt VTE Proph given/why not?: SCD's [place] Drug Monitoring Program Search Results: no issues identified
[2017-06-17 16:49] VITALS: BP 104/71; PULSE 60; TEMP 36.8; O2SAT 98
--- NOTE | 2017-06-17 17:09 | NUR ---
A: D/C instructions given to pt. Pt. expressed understanding.
[2017-06-18 06:02] LABS: HEPATITIS A IGM TC 51813E NON-REACTIVE (NON-REACTIVE); HEPATITIS B CORE IGM TC51854R NON-REACTIVE (NON-REACTIVE)
--- NOTE | 2017-06-18 07:36 | Discharge Summary ---
Discharge Summary Date of Service Jun 17, 2017. Discharge Summary Admission Date: Jun 16, 2017 at 22:04 Discharge Date: Jun 17, 2017 Discharge Disposition: Home Principal Diagnosis: Acute hepatitis Problems/Secondary Diagnoses: Thrombocytopenia Preliminary hepatitis C positive h/o IV drug use Procedures: none Consultations: Gastroenterology Medication Reconciliation New Medications: Omeprazole (Prilosec) 40 Mg Cap 1 CAP PO DAILY for 30 Days, #30 CAP 3 Refills Ondasetron Odt (Zofran Odt) 4 Mg Tab 4 MG SL Q6H PRN for Nausea, #10 TAB Discharge Exam Patient feeling much better in 24 hours. Eating well, no nausea or vomiting, very mild epigastric and RUQ abdominal pain. Evaluated by gastroenterology, enzymes trending down, clinically improving. Favoring a viral hepatitis, but the serology studies would take days to come back, recommend d/c to home. Talked with patient later that day, she continued to feel well, wanted to go home. Review of Systems: Constitutional: + weakness, + fatigue, No fever, No chills, No sweats, No weight loss, No problem reported Eyes: No worsening of vision, No eye pain, No redness, No discharge, No diplopia, No problem reported ENT: No hearing loss, No unusual epistaxis, No nasal symptoms, No sore throat, No tinnitus, No dental problems, No trouble swallowing, No problem reported Respiratory: No cough, No sputum, No wheezing, No shortness of breath, No dyspnea on exertion, No dyspnea at rest, No hemoptysis, No problem reported Cardiovascular: No chest pain, No orthopnea, No PND, No edema, No claudication, No palpitations, No problem reported Abdomen: + pain, No nausea, No vomiting, No diarrhea, No constipation, No GI bleeding Musculoskeletal: No joint pain, No muscle pain, No swelling, No calf pain, No problem reported Genitourinary - Female: No dysuria, No urinary frequency, No urinary urgency , No urinary incontinence, No urinary retention, No hematuria Neurologic: No memory loss, No paralysis, No weakness, No numbness/tingling , No vertigo, No balance problems, No problem reported Psychiatric: No depression symptoms, No anhedonism, No anxiety, No insomnia , No substance abuse, No problem reported Endocrine: No fatigue, No excessive thirst, No excessive urination, No problem reported Hematologic / Lymphatic: No abnormal bleeding/bruising, No clotting problems , No swollen lymph nodes, No night sweats, No problem reported Integumentary: No rash, No itch, No new/changing skin lesions, No color change, No bleeding, No problem reported Physical Exam: General Appearance: WD/WN, + thin Eyes: normal inspection, EOMI, sclerae normal ENT: normal ENT inspection, hearing grossly normal, pharynx normal Neck: supple, no adenopathy, no JVD, trachea midline Respiratory/Chest: chest non-tender, lungs clear, normal breath sounds, no respiratory distress, no accessory muscle use Cardiovascular: regular rate, rhythm, no edema, no gallop, no JVD, no murmur , normal peripheral pulses Abdomen / GI: normal bowel sounds, non tender, soft, no organomegaly Extremities: normal inspection, no calf tenderness, normal capillary refill , no pedal edema, normal range of motion, pelvis stable Neurologic/Psychiatric: quality assurance supervisor body II-XII nml as tested, no motor/sensory deficits , alert, normal mood/affect, normal reflexes, oriented x 3 Skin: normal color, warm/dry, no rash Hospital Course 27 yo female with acute onset of RUQ pain, nausea and vomiting, symptoms for almost a week prior to arrival, found to have markedly elevated transaminases suggesting hepatitis - Acute hepatitis: quickly resolving, AST and ALT both trending down quickly, symptoms improved dramatically, no pain, able to eat preliminary hepatitis C positive, awaiting confirmatory testing hepatitis B negative numerous serology studies and viral studies sent out, will take days to come back normal liver US, no evidence of any thrombus in portal vein patient cleared for discharge by gastroenterology, needs follow up for liver studies unfortunately [facility] gastroenterology does not take her insurance, will need to refer to [facility] she will need to follow up with infectious disease for the hepatitis C testing of note, HIV testing was still pending - Thrombocytopenia: likely a result of viral infection, hepatitis Plts 75 on the day of discharge, no bruising or bleeding complications d/c to home, will help arrange follow up Total Time Spent: Greater than 30 minutes This includes examination of the patient, discharge planning, medication reconciliation, and communication with other providers. Discharge Instructions Please refer to the electronic Patient Visit Report (Discharge Instructions) for additional information. Follow-Up Infectious disease [facility] gastroenterology Additional Copies To Jerome Cosby MD; Tyler Treviño D.O.
[2017-06-18] MEDS ORDERED: PANTOprazole SOD 40 MG TAB PO SCH (08:00)
[2017-06-18 11:26] LABS: EBV EARLY ANTIGEN AB < 9.00 U/ML
[2017-06-19 21:35] LABS: HEPATITIS C RNA TMA QUAL Detected
[2017-06-20 22:26] LABS: PARVOVIRUS IgM INDEX 0.1 (<0.9)
[2017-06-23 19:42] LABS: ANA SCREEN TC 249X NEGATIVE (NEGATIVE); VARICELLA ZOS VIR IGM AB <=0.90 (<=0.90)
== END 2017-06-17 17:10 | disposition home or self-care (01) | DRG 443 ==
LOC: C.EDB 17:17 → C.MS4W 22:04 → EEVIPCON 22:04 → ENRESERV 22:14
PROVIDERS: ADMIT Internal Medicine; ATTEND Internal Medicine
DX: B17.9 Acute viral hepatitis, unspecified (principal); D69.6 Thrombocytopenia, unspecified; F17.200 Nicotine dependence, unspecified, uncomplicated; Z88.1 Allergy status to other antibiotic agents; Z87.898 Personal history of other specified conditions

== ENCOUNTER 2022-01-07 05:19 | Inpatient (IN) ==
[2022-01-07] MEDS ORDERED: OXYTOCIN 30 UNITS/500 ML BAG IV PRN ×3 (06:23→15:28)
[2022-01-07] MEDS: LACTATED RINGER'S 1,000 ML IV PRN ×2 (06:32→10:27)
[2022-01-07] MEDS ORDERED: PENICILLIN G POTASSIUM 6 MU in DEXTROSE 5% 250 ML IV ONE (06:45)
--- NOTE | 2022-01-07 06:48 | History & Physical Report ---
Date of Service January 07, 2022 Assessment & Plan (1) : Plan: Admit to L&D. EFM/toco. Labs - already ordered/drawn initial labs d/t limited care prior to arrival of records from Dr David's office. COVID swab. Urine drug screen. OK for epidural when she desires. Admission and Anticipated Discharge Date Admission Date: January 07, 2022 History of Present Illness Chief Complaint: labor Primary Care Provider: NO PCP 31yo @ 39 07/28 based on 28w ultrasound presented by EMS to L&D. She began having contractions at 7pm last night, then large gush of clear fluid at 3am. No vaginal bleeding. + movement. She has had limited care, saw Dr David x 2 in the - records are available. Her medical history is significant for: asthma - no current meds anxiety/depression - no current meds h/o Hep C - 2016 h/o IV drug use - has been using Subutex for the past 2 years - takes 4mg daily at lunchtime. States she recently switched doctors, not sure of doctor's name but it is in [place]. H/o IV heroin use, states no use since 2018. H/o abnormal pap smear - had a colposcopy noted on Dr David's records Smoker Has 2 dermal piercings - one on abdomen, one on face Allergies Allergy/AdvReac Type Severity Reaction Status Date / Time ciprofloxacin Allergy Severe HIVES-SWELL Verified 03/08/19 21:44 ING-RASH Home Medications Medication Instructions Recorded Confirmed Type albuterol sulfate 90 mcg/actuation 2 puff inhalation Q6H PRN 03/08/19 03/08/19 History aerosol inhaler (Ventolin HFA) Shortness Of Breath Or Wheezing metronidazole 500 mg tablet 500 mg PO TID #30 tabs 06/30/20 Rx (Flagyl) Patient History Medical History (Updated 01/07/22 @ 06:55 by Yulia Ferrari DO) Acute hepatitis Heroin use Clean since december 2017 Pyelonephritis Separation of nail plate Thrombocytopenia Surgical History No history of previous surgery No significant past surgical history Family History Other Family history non-contributory Social History Smoking Status: Current every day smoker Cigarettes Per Day: 10; Second Hand Exposure: No; Do You Dip or Chew Tobacco: No; Tobacco Cessation Education Requested by Patient: No Hx Alcohol Use: No Hx Substance Use: No Preferred Language: French Communication Ability: Effective Refinery Operator Assistant Required: No Beliefs That Will Affect Care: None marital status: Single Current Living Situation: Significant Other current occupational status: unemployed Other Information That Helps Us Care for You: No Feels Safe at Home: Yes Safety Concerns: Feels Safe At This Time Review of Systems All systems reviewed & are unremarkable except as noted in HPI & below Physical Exam Physical Exam: FHT Cat 1 [place] Q 2 SVE 5/100/+1 Limited bedside US: cephalic, + movement and +cardiac activity, posterior placenta. No measurable amniotic fluid. Constitutional: WD/WN, vitals as above Respiratory: normal respiratory effort, lungs clear to auscultation no respiratory distress Cardiovascular: Rate/Rhythm: regular rate and regular rhythm Gastrointestinal (Abdomen): Inspection/Auscultation: abdomen normal to inspection Percussion/Palpation: abdomen soft; abdomen nontender Gravid. No s/s chorio or abruption. Skin: no rashes, warm and dry Psychiatric: A+Ox3, euthymic affect Results & Data ([facility]) Vital Signs (Past 12 Hours) Vital Signs Temp Pulse Resp BP 01/07/22 06:13 63 145/81 H 01/07/22 06:07 70 138/88 01/07/22 05:33 36.5 C 20 Coding Level of Care Code None Diagnoses Z34.90
[2022-01-07 07:05] LABS: Amphetamines+Metham, Urine Pos (Neg); Barbiturates, Urine Neg (Neg); Benzodiazepine, Urine Neg (Neg); Cocaine, Urine Neg (Neg); MDMA (Ecstacy), Urine Neg (Neg); Methadone, Urine Neg (Neg); Opiate, Urine Neg (Neg); Phencyclidine, Urine Neg (Neg)
[2022-01-07] MEDS ORDERED: BUPIVACAINE 0.25% 30 ML VIAL ONE (07:10)
[2022-01-07] MEDS ORDERED: fentaNYL citrate 100 MCG/2 ML VIAL ONE (07:10)
[2022-01-07] MEDS ORDERED: LIDOCAINE 2%/EPINEPHRINE 1:200,000 20 ML SDV ONE (07:10)
[2022-01-07] MEDS ORDERED: SODIUM CHLORIDE 0.9% INJ 10 ML VIAL ONE (07:10)
[2022-01-07] MEDS ORDERED: ePHEDrine sulfate 50 MG/ML AMP ONE (07:10)
[2022-01-07] MEDS ORDERED: fentaNYL 2MCG/ML ROPIVACAINE 1.25MG/ML 100 ML BAG EPI ONE (07:11)
[2022-01-07 07:13] LABS: Hematocrit (blood only) 31.4 % (34.1-44.9); Hemoglobin 9.6 g/dl (12.0-16.0); Mean Corpuscular Hemoglobin 23.7 pg (25.0-34.0); Mean Corpuscular Hgb Conc 30.6 g/dL (32.0-36.0); Mean Corpuscular Volume 77.5 fL (80.0-100.0); Mean Platelet Volume 11.4 fL (9.4-12.3); Platelet Count 249 K/uL (130-400); RDW Coefficient of Variation 15.1 % (11.5-14.5); RDW Standard Deviation 42.2 fL (36.4-46.3); Red Blood Count 4.05 M/uL (3.93-5.22); White Blood Count 9.68 K/ul (4.8-10.8)
[2022-01-07] MEDS ORDERED: NALOXONE HCL 0.4 MG/1 ML VIAL/CARP IV PRN (07:37)
[2022-01-07] MEDS ORDERED: diphenhydrAMINE 50 MG/ML VIAL IV PRN (07:37)
[2022-01-07] MEDS ORDERED: fentaNYL 2MCG/ML ROPIVACAINE 1.25MG/ML 100 ML BAG EPI PRN (07:37)
[2022-01-07] MEDS ORDERED: ePHEDrine sulfate 50 MG/ML AMP IV PRN (07:37)
[2022-01-07] MEDS ORDERED: NALBUPHINE HCL INJ 10 MG/ML AMP IV PRN (07:37)
[2022-01-07] MEDS ORDERED: ONDANSETRON INJ 2 MG/ML 2 ML VIAL IV PRN (07:37)
[2022-01-07] MEDS ORDERED: NALOXONE HCL 1 MG in SODIUM CHLORIDE 0.9% 1000ML 1,000 ML IV PRN (07:37)
[2022-01-07 07:39] LABS: Albumin Globulin Ratio 0.9 (0.9-2); Albumin Level 3.3 gm/dl (3.4-5.0); BUN Creatinine Ratio 16.4 (10-20); Bilirubin,Total 0.3 mg/dl (0.2-1.0); Calcium 8.4 mg/dl (8.5-10.1); Creatinine Clr Calc Pharmacy 102.4 ml/min; Est GFR (African American) 138.1 ml/min; Est GFR (Non-African American) 119.1 ml/min; Globulin 3.7 gm/dl (2.5-4.0); Potassium 3.9 mmol/L (3.5-5.1)
--- NOTE | 2022-01-07 07:39 | Anesthesiology Consultation ---
Date of Service January 07, 2022 Assessment & Plan Chart Review Chart Review: Patient NOT seen in Pre Admission Testing and Acceptable Risk for Labor Epidural Consults Requested none ASA ASA3 Proposed Anesthesia Anesthesia Type: Labor Epidural and CSE Risk / Benefits Reviewed With: PT / POA / Parent / Guardian, Accepts Plan and Informed Consent Obtained History Surgery The patient's current tox screen is positive for methamphetamines. Height/Weight Height: 4 ft 9 in Weight: 65.771 kg Allergies Allergy/AdvReac Type Severity Reaction Status Date / Time ciprofloxacin Allergy Severe HIVES-SWELL Verified 03/08/19 21:44 ING-RASH Medications Home Medications Medication Instructions Recorded Confirmed Last Taken albuterol sulfate 90 mcg/actuation 2 puff inhalation Q6H PRN 03/08/19 03/08/19 Unknown aerosol inhaler (Ventolin HFA) Shortness Of Breath Or Wheezing buprenorphine HCl 8 mg sublingual 4 mg sublingual DAILY 01/07/22 01/07/22 01/06/22 12:00 tablet [id number] 1 mg 1 tab PO DAILY 01/07/22 01/07/22 01/06/22 08:00 tablet Active Medications Generic Name Dose Route Start Last Admin Trade Name Freq PRN Reason Stop Dose Admin Lactated Ringer's 1,000 mls @ 125 mls/hr 01/07/22 06:23 01/07/22 07:04 Lr IV 01/09/22 06:22 125 mls/hr .Q8H PRN Infusion L&D Protocol Protocol Penicillin G Potassium 6 mu/ 262 mls @ 262 mls/hr 01/07/22 06:45 01/07/22 06:50 Dextrose IV 01/07/22 07:44 262 mls/hr 0645 ONE Administration NPO Date Last Intake of Fluids: 01/07/22 Time Last Intake of Fluids: 05:00 Date Last Intake of Solids: 01/06/22 Time Last Intake of Solids: 19:00 Past Medical History Medical History Acute hepatitis Heroin use Clean since december 2017 Methamphetamine abuse Pyelonephritis Separation of nail plate Smoker Exercise / Class Metabolic Activity II 4-5 Yardwork/Stairs/Walk up hill Past Family History Family History Other Family history non-contributory Past Surgical History Surgical History No history of previous surgery No significant past surgical history Past Anesthesia History No Hx of Anesthesia Complications and No Family Hx of Anesthesia Complications History of PONV No Hx of PONV and No Hx of Motion Sickness Social History Smoking Status: Current every day smoker tobacco type: cigarettes Smoking cigarettes per day: 10 Do You Dip or Chew Tobacco: No Hx Alcohol Use: No Hx Substance Use: No Last Used Substance: Just Prior to Arrival Review of Systems no chest pain or sob Physical Exam Vital Signs Last Vital Signs Temp 36.5 C 01/07/22 05:33 Pulse 83 01/07/22 07:37 Resp 20 01/07/22 05:33 BP 164/95 H 01/07/22 07:33 Pulse Ox 92 01/07/22 07:37 ENMT Mouth: no TMJ abnormality Thyromental Distance: > or= 3.5 Finger Breadths Mallampati Class: II Neck normal visual inspection Respiratory normal respiratory effort Auscultation: lungs clear to auscultation bilaterally Cardiovascular Rate/Rhythm: regular rate and regular rhythm Musculoskeletal Spine: normal cervical ROM Neurologic moves all extremities Psychiatric Orientation: alert and oriented x 3 Testing Laboratory Results 01/07/22 06:48 01/07/22 06:48
[2022-01-07 08:03] LABS: Rubella IgG Ab Non Immune (Immune)
[2022-01-07] MEDS ORDERED: PENICILLIN G POTASSIUM 3 MU in DEXTROSE 5% 100 ML IV PRN (09:23)
[2022-01-07] MEDS ORDERED: Nursing to Pharmacy Communication SCH (12:10)
--- NOTE | 2022-01-07 15:23 | Delivery Summary ---
Vaginal Delivery Summary Date of Service January 07, 2022 Vaginal Delivery Summary [facility] Patient is a 31-year-old 2 para 0-0-1-0 female who presented at 39-2/7 weeks in active labor. She had minimal care, her last visit which was with Dr. Saldana was at 20 weeks at the time of her anatomy scan. 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 She has been on Subutex during that time. She received effective epidural analgesia which had to be dosed once. She did end up receiving Pitocin augmentation of her labor after her contractions spaced out. She progressed to full dilation and pushed effectively over intact perineum for delivery of a viable male . A tight nuchal cord was noted and this was clamped and cut prior to delivering the rest of the infant. The shoulders delivered easily and the infant was vigorous upon delivery and was placed on the mother's abdomen for further attention and drying. After cord blood was obtained the placenta expressed intact with a three-vessel cord. It appeared edematous and ecchymotic diffusely. After the infant delivered the bleeding was a dark port wine color so at least partial placental abruption is suspected suspected. We will send the placenta for exam. There were superficial bilateral labial lacerations that were not bleeding and therefore not repaired. Estimated blood loss is 200 cc. bleeding was controlled with dilute Pitocin. Mother and were doing well after delivery. [facility] [place] Delivery Type Details: [facility]
[2022-01-07] MEDS ORDERED: oxyCODONE/ACETAMINOPHEN 5mg/325mg TAB PO PRN (15:28)
[2022-01-07] MEDS ORDERED: HYDROCORTISONE ACETATE 25 MG SUPP PR PRN (15:28)
[2022-01-07] MEDS ORDERED: BENZOCAINE 20% AER SPR 82.5 GM CAN EXT PRN (15:28)
[2022-01-07] MEDS ORDERED: DIPHTHERIA/TETANUS/PERTUSSIS 0.5 ML SYR/VIAL IM ONE (15:28)
[2022-01-07] MEDS ORDERED: IBUPROFEN 600 MG TAB PO PRN (15:28)
[2022-01-07] MEDS ORDERED: ACETAMINOPHEN 325 MG TAB PO PRN (15:28)
[2022-01-07] MEDS ORDERED: ALBUTEROL HFA 8 GM INHALER INH PRN (15:54)
[2022-01-07] MEDS: NICOTINE 14 MG/24 HR PATCH TD SCH (17:56)
[2022-01-07] MEDS: buprenorphine HCL 2 MG SUBL SL SCH (18:06)
--- NOTE | 2022-01-07 18:29 | Anesthesia Procedure Note ---
Date of Service January 07, 2022 Anesthesia Post Epidural Note Vital Signs Vital Signs: Temp Pulse Resp BP Pulse Ox O2 Del Method 36.7 C 99 H 18 115/74 100 01/07/22 18:18 01/07/22 17:15 01/07/22 18:18 01/07/22 18:18 01/07/22 15:15 01/07/22 18:18 Pain Intensity Lower Abdomen: Pain Intensity: 2 Notes Mental Status: alert / awake / arousable and participated in evaluation Nausea / Vomiting: adequately controlled Pain: adequately controlled Airway Patency, RR, SpO2: stable & adequate BP & HR: stable & adequate Hydration State: stable & adequate Neuraxial Anesthesia: was administered and sensory block is resolving Anesthetic Complications: no major complications apparent and Pt Satisfied with anesthetic care Epidural: Removed without complications and With tip intact
[2022-01-08] MEDS: DOCUSATE SODIUM 100 MG CAP PO SCH ×2 (02:08→09:36)
--- NOTE | 2022-01-08 06:06 | Obstetrical Progress Note ---
Date of Service <Angela PaniaguaDO - Last Filed: 01/08/22 06:39> January 08, 2022 Assessment & Plan <Angela PaniaguaDO - Last Filed: 01/08/22 06:39> (1) Status post vaginal delivery: Plan continue OOB, ambulation, diet as tolerated Hemoglobin of 7.7 this morning, asymptomatic <Peyton Elias MD, FACOG - Last Filed: 01/08/22 07:54> (1) Status post vaginal delivery: Subjective <Angela PaniaguaDO - Last Filed: 01/08/22 06:39> Mary is a 31 y/o female who is now PPD # 1 following vaginal delivery at 39 2/7 weeks. Reports feeling well overall this morning. Mild abdominal cramping & pain well managed on analgesics. Voiding. Tolerating meals overnight and able to ambulate some. Is passing gas, but no bowel movements. Some persistent lochia with some improvement this morning. Bottle feeding. Review of Systems Denies fever, chills, sweats Denies shortness of breath, difficulty breathing, chest pain, palpitations, chest pressure. Denies breast pain. Denies dysuria. Denies headache, changes in vision, lightheadedness. Physical Exam <Angela PaniaguaDO - Last Filed: 01/08/22 06:39> General: Alert, oriented. No acute distress. Cardiac: Regular rate and rhythm, no murmurs/rubs/gallops. Respiratory: Clear to auscultation bilaterally a/p, no wheezes/rales/rhonchi. No increased work of breathing. Symmetrical chest rise. No respiratory distress. Abdomen: Soft, nontender, nondistended. Bowel sounds present. Uterus: Uterine fundus firm, palpable 3 cm below umbilicus. Lower Extremities: No lower extremity edema or swelling. No deep calf pain. Arielle's negative bilaterally. Results & Data ([facility]) <Angela PaniaguaDO - Last Filed: 01/08/22 06:39> Vital Signs (Past 12 Hours) Vital Signs Temp Pulse Resp BP Pulse Ox O2 Del Method 01/08/22 02:18 36.7 C 73 16 129/78 99 Room Air 01/07/22 23:00 36.8 C 72 16 122/74 98 Room Air 01/07/22 19:30 36.7 C 89 16 119/82 99 Room Air 01/07/22 18:18 36.7 C 18 115/74 Room Air <Peyton Elias MD, FACOG - Last Filed: 01/08/22 07:54> Co-Signing Physician Notes Resident Physician Supervision Note: I interviewed and examined the patient. Discussed with Dr. Paniagua and agree with findings and plan as documented in the note. Any exceptions or clarifications are listed here: [None] Documented By: Peyton Elias MD, FACOG Resident Activity Tracking <Angela Paniagua, DO - Last Filed: 01/08/22 06:39> Resident Involvement: Resident Care Provided Care Provided: OB Delivery (Post )
[2022-01-08 06:13] LABS: Hematocrit (blood only) 24.9 % (34.1-44.9); Hemoglobin 7.7 g/dl (12.0-16.0); Mean Corpuscular Hemoglobin 23.5 pg (25.0-34.0); Mean Corpuscular Hgb Conc 30.9 g/dL (32.0-36.0); Mean Corpuscular Volume 76.1 fL (80.0-100.0); Mean Platelet Volume 11.3 fL (9.4-12.3); Platelet Count 204 K/uL (130-400); RDW Coefficient of Variation 15.3 % (11.5-14.5); RDW Standard Deviation 42.3 fL (36.4-46.3); Red Blood Count 3.27 M/uL (3.93-5.22); White Blood Count 9.91 K/ul (4.8-10.8)
[2022-01-08] MEDS ORDERED: PRENATAL VITAMIN 1 TAB PO SCH (08:00)
[2022-01-08] MEDS ORDERED: FERROUS SULFATE 325 MG TAB PO SCH (09:00)
[2022-01-08] MEDS: buprenorphine HCL 2 MG SUBL SL SCH (09:36)
[2022-01-08] MEDS: NICOTINE 14 MG/24 HR PATCH TD SCH (09:36)
[2022-01-08] MEDS ORDERED: bisacodyL 5 MG TABEC PO SCH (20:00)
[2022-01-09 07:12] LABS: HBSAG NON-REACTIVE (NON-REACTIVE)
[2022-01-09] MEDS ORDERED: bisacodyL 10 MG SUPP PR PRN (09:00)
[2022-01-09 10:19] LABS: Hepatitis C Vira RNA (Log) PCR 1.88 Log IU/mL (NOT DETECTED); Hepatitis C Viral RNA by PCR 75 IU/mL (NOT DETECTED)
[2022-01-09 11:26] LABS: Amphetamine Urine, Confirm 766 ng/mL (<250); Methamphetamine, Ur Confirm 2840 ng/mL (<250)
== END 2022-01-08 21:35 | disposition home or self-care (01) | DRG 806 ==
LOC: OPB 05:19 → 4S1 05:30 → 4E2 19:01